=== PATIENT | male | born 1990 | race Caucasian/White ===

== ENCOUNTER 2021-04-25 16:28 | Outpatient (CLI) | payer OTHER, SELFPAY ==
[2021-04-25 17:08] LABS: Absolute Lymphocyte Count 2.62 X10^3/uL (0.83-4.51); Absolute Neutrophil Count 5.8 X10^3/uL (2.0-7.7); Basophil# 0.03 X10^3/uL; Basophil% 0.3 % (0-1); Eosinophil# 0.12 X10^3/uL; Eosinophils% 1.3 % (0-5); Hematocrit 44.2 % (40-54); Hemoglobin 15.3 g/dL (13.0-16.5); Lymphocyte # 2.62 X10^3/ul (0.83-4.51); Mean Corp Hgb Conc 34.6 g/dL (32-36); Mean Corpuscular Hgb 28.9 pg (27.0-32.0); Mean Corpuscular Volume 83.6 fL (80-94); Mean Platelet Vol. 8.9 fl (6.2-12.0); Monocyte# 0.73 X10^3/uL; Monocyte% 7.8 % (0-10); NRBC Flagged by Analyzer 0 % (0-5); Neutrophil # 5.82 X10^3/uL (2.7-7.7); Neutrophil % 62.2 % (47-70); Platelet Count 284 K/mm3 (150-450); RBC Distribution Width CV 11.9 % (11.6-14.6); RBC Distribution Width SD 36.2 fl (35.1-43.9); Red Blood Count 5.29 M/mm3 (4.6-6.2); White Blood Count 9.4 K/mm3 (4.4-11.0)
[2021-04-25 17:41] LABS: Anion Gap 5 (5-15); BUN 20 mg/dL (7-18); BUN/Creat Ratio 17.2 RATIO (10-20); Calcium,Total 9.9 mg/dL (8.5-10.1); Chloride 107 mmol/L (98-107); Cholesterol 188 mg/dL (200); Creatinine, Serum 1.16 mg/dL (0.70-1.30); EST Glomerular Filtration Rate 79 mL/min (>60); Est Glom Filt Rate - Afr Amer 95 mL/min (>60); Glucose 91 mg/dL (74-106); High Density Lipoprotein 67 mg/dL; Potassium 3.7 mmol/L (3.5-5.1); Sodium Level 139 mmol/L (136-145); Thyroid Stim Hormone (TSH) 0.88 uIU/mL (0.358-3.74); Triglycerides 74 mg/dL; Very Low Density Lipoprotein 15 mg/dL (5-40)
== END 2021-04-25 23:59 | disposition home or self-care (01) ==
PROVIDERS: PCP Family Medicine; Referring Provider Internal Medicine Cardiovascular Disease; Visit Provider Internal Medicine Cardiovascular Disease
DX: R03.0 Elevated blood-pressure reading, without diagnosis of hypertension (principal)
CPT/HCPCS: 36415; 80048; 80061; 82088; 82384; 84244; 84443; 85025

== ENCOUNTER → 2021-07-04 | Outpatient (CLI) | payer SELFPAY ==
--- NOTE | 2021-07-04 13:45 | ECHOD_ITS ---
Reason For Study: HYPERTENSION Procedure This was a 2D Doppler, Color Flow transthoracic echocardiogram. Exam performed in department. Left Ventricle Normal LV size. Left ventricular systolic function is normal. The estimated ejection fraction is 60 %. Normal diastology for age. No regional wall motion abnormalities noted. Right Ventricle Normal RV size. Normal systolic function. Atria Normal left atrium. Normal right atrium. Mitral Valve Normal mitral valve. Tricuspid Valve Normal tricuspid valve. Aortic Valve Normal aortic valve. Trisinus/trileaflet aortic valve. Pulmonic Valve Normal pulmonic valve. Great Vessels Normal aortic root. The pulmonary artery is normal size. Normal inferior vena cava. Pericardium/Pleural No pericardial effusion. MMode/2D Measurements & Calculations LVIDd: 4.1 cm IVSd: 0.86 cm Ao root diam: 3.3 cm LVIDs: 2.8 cm LVPWd: 0.88 cm RVDd: 3.4 cm FS: 32.4 % LAV(MOD-bp): 18.6 ml LVAd ap4: 33.2 cm2 SV(MOD-sp4): 62.7 ml LAV(MOD-bp) Indexed: 9.2 ml/m2 LVLd ap4: 9.6 cm LAV(MOD-sp2): 20.3 ml EDV(MOD-sp4): 94.6 ml LAV(MOD-sp4): 17.4 ml EDV(sp4-el): 97.4 ml LVAs ap4: 17.6 cm2 LVLs ap4: 8.0 cm ESV(MOD-sp4): 31.9 ml ESV(sp4-el): 32.6 ml EF(MOD-sp4): 66.3 % EF(sp4-el): 66.5 % SV(sp4-el): 64.8 ml LA A4 area: 10.3 cm2 LA dimension(2D): 2.8 cm RA A4 area: 11.0 cm2 Time Measurements MV dec time: 0.21 sec Doppler Measurements & Calculations MV E max clif: 96.8 cm/sec Lat Peak E' Clif: 15.8 cm/sec Med Peak E' Clif: 15.2 cm/sec MV A max clif: 78.9 cm/sec E/E' lat: 6.1 E/E' med: 6.4 MV E/A: 1.2 Ao V2 max: 143.5 cm/sec LV V1 max: 144.0 cm/sec PA V2 max: 126.3 cm/sec Ao max P.2 mmHg LV V1 max P.3 mmHg ECHO/Echo Complete Interpretation Summary Normal LV size. Left ventricular systolic function is normal. The estimated ejection fraction is 60 %. Normal diastology for age. Structurally normal valves. Ordering Physician: Sal Wagner Referring Physician: MODESTA FLORES Performed By: Namrata Alicea RDCS
== END | disposition home or self-care (01) ==
LOC: CVS 13:44
PROVIDERS: PCP Family Medicine; Referring Provider Internal Medicine Cardiovascular Disease; Visit Provider Internal Medicine Cardiovascular Disease
DX: R03.0 Elevated blood-pressure reading, without diagnosis of hypertension (principal); F14.21 Cocaine dependence, in remission; F10.11 Alcohol abuse, in remission
CPT/HCPCS: 93306